=== PATIENT | male | born 1995 | race Caucasian/White ===

== ENCOUNTER 2020-09-07 09:17 | Emergency (ER) | payer SELFPAY ==
[2020-09-07] MEDS ORDERED: Amoxicillin/Potassium Clav 875 MG TAB ONE (10:00)
== END 2020-09-07 10:05 | disposition home or self-care (01) ==
LOC: NAV ERS 09:17
DX: J36 Peritonsillar abscess (principal); J45.909 Unspecified asthma, uncomplicated; F17.210 Nicotine dependence, cigarettes, uncomplicated
CPT/HCPCS: 99283